=== PATIENT | male | born 1960 | race Caucasian/White ===

== ENCOUNTER → 2019-10-30 07:24 | Outpatient (BNVA) | payer MEDICARE, OTHER, SELFPAY | DX: E11.59 Type 2 diabetes mellitus with other circulatory complications (principal); I10 Essential (primary) hypertension; Z86.73 Personal history of transient ischemic attack (TIA), and cerebral infarction without residual deficits | CPT/HCPCS: 80048 ==

== ENCOUNTER → 2021-04-04 11:36 | Outpatient (BNVA) | payer MEDICARE, BC, SELFPAY | DX: M65 Synovitis and tenosynovitis (principal) | CPT/HCPCS: 73140 ==